=== PATIENT | male | born 1995 | race Two or more races ===

== ENCOUNTER 2024-08-17 18:05 | Emergency (ER) | payer MEDICAID, SELFPAY ==
[2024-08-17 18:17] VITALS: BP 106/64; PULSE 106; RESP 18; TEMP 39.5; O2SAT 96; BMI 26.6
--- NOTE | 2024-08-17 18:21 | XR_ITS ---
Examination: PA lateral chest 2 views TECHNIQUE: Upright PA lateral chest 2 views Exam date and time: August 17, 2024 1848 hours INDICATIONS: Coughing fever today. FINDINGS: Normal heart size The lungs are clear. The osseous structures are intact IMPRESSION: No pneumonia identified
[2024-08-17 18:39] VITALS: TEMP 39.5
[2024-08-17] MEDS: IBUPROFEN TAB 600 MG TABLET PO (18:39)
[2024-08-17] MEDS: ACETAMINOPHEN 500 MG TABLET 1000 MG PO (18:39)
--- NOTE | 2024-08-17 18:54 | EDNOTE_ITS ---
Upper Respiratory Inf. RME/HPI General Chief Complaint: Flu Like Symptoms Stated Complaint: nausea/ vomiting , fever, weakness x 2 nights Time Seen by Provider: 08/17/24 18:18 Arrival date/time: 08/17/24 18:05 RME / HPI RME / HPI Narrative: 29-year-old male presents with complaint of bodyaches. Onset 1 day ago. Patient reports associated cough and nausea/vomiting. Endorses subjective fevers as well. Denies any sick contacts at home. Denies any chest pain or shortness of breath. Denies abdominal pain. Related Data Previous Rx's ?Medication ?Instructions ?Recorded lorazepam 0.5 mg tablet 0.5 mg PO QDAY Anxiety #10 t abs 07/12/17 ibuprofen 600 mg tablet 600 mg PO TID PRN pain #30 t abs 08/17/24 oseltamivir 75 mg capsule 75 mg PO BID 5 days #10 caps 08/17/24 Allergies Allergy/AdvReac Type Severity Reaction Status Date / Time NKA* Allergy Uncoded 08/17/24 18:06 Review of Systems Review of Systems Systems Reviewed: All systems reviewed, normal except as documented ED Exam Narrative Physical exam: Constitutional: no acute distress, age appropriate, non-toxic Eyes: PERRL, conjunctivae w/o pallor, EOMI HENT: normocephalic, atraumatic. Oral mucosa moist Respiratory Effort: no stridor, effort normal, no retractions Breath sounds: Clear bilaterally; No rales, No rhonchi, No wheezing Cardiovascular: regular rhythm, S1 and S2 normal, no murmur Abdominal: soft; non-distended, non-tender Musculoskeletal: no deformities, no swelling, no LE edema Skin: warm, dry; No rash Neurology: alert, oriented X 4. Normal gait. Moves all extremities spontaneously. Psychology: cooperative, normal mood Course Quality Measures none Orders Category Date Time Status Bedside COVID-19 Antigen Test NOW Care 08/17/24 18:21 Active Bedside Influenza A&B Antigen Test NOW Care 08/17/24 18:21 Completed XR chest 2V Stat Exams 08/17/24 18:21 Completed Acetaminophen Tab [Tylenol ES Tab] Med 08/17/24 18:22 Discontinued 1,000 mg PO X1 ONE Ibuprofen Tab [Motrin Tab] Med 08/17/24 18:22 Discontinued 600 mg PO X1 ONE Vital Signs Vital signs: Vital Signs Temperature 103.1 F H 08/17/24 18:17 Pulse Rate 106 H 08/17/24 18:17 Respiratory Rate 18 08/17/24 18:17 Blood Pressure 106/64 08/17/24 18:17 Pulse Oximetry (%) 96 08/17/24 18:17 Oxygen Delivery Method Room Air 08/17/24 18:17 Upper Respiratory Infection MDM Narrative MDM Narrative:: 29-year-old male presented with fever and bodyaches. Differential diagnoses include sepsis, pneumonia, viral URI, influenza, COVID-19 Patient appears well and nontoxic. History and exam is not consistent with sepsis and his mild tachycardia resolved after antipyretics. Pneumonia felt to be unlikely as the patient's chest x-ray is clear without any infiltrate. He is COVID and flu swabs were both negative, however clinically I feel it is quite likely he does have influenza. Upon reassessment after medications, patient reports feeling much better. Counseled to rest and drink plenty of fluids. Rx sent for Tamiflu and ibuprofen. Strict return to ED precautions given. Patient data External records reviewed:: [facility] previous records Clinical information provided by:: patient Social determinants that could affect healthcare access:: none Patient has the following chronic illnesses:: None How is presenting disease/condition affected by chronic disease/condition?: no chronic disease Evaluation data The following diagnostics were reviewed and interpreted by me:: lab results and radiology exam(s) Lab and/or radiology exams considered but not ordered:: None Interpretation Summary: Examination: PA lateral chest 2 views TECHNIQUE: Upright PA lateral chest 2 views Exam date and time: August 17, 2024 1848 hours INDICATIONS: Coughing fever today. FINDINGS: Normal heart size The lungs are clear. The osseous structures are intact IMPRESSION: No pneumonia identified Medications / Prescriptions Medications or Prescriptions considered but not ordered:: N/A Medication administrations:: Medication Administration History Discontinued Medications Acetaminophen (Acetaminophen 500 Mg Tablet) 1,000 mg PO X1 ONE Stop: 08/17/24 18:23 Last Admin: 08/17/24 18:39 Dose: 1,000 mg Documented By: EO Ibuprofen (Ibuprofen Tab 600 Mg Tablet) 600 mg PO X1 ONE Stop: 08/17/24 18:23 Last Admin: 08/17/24 18:39 Dose: 600 mg Documented By: EO See above Consultations Consultation(s) initiated? (list below): No Diagnosis Upper Respiratory Differential Diagnosis: upper respiratory infection, sinusitis, viral infection, bronchitis, influenza and pharyngitis Most likely diagnosis given after review of the tests above:: Viral syndrome Admission Indicated Admission indicated?: not indicated Admission Request Was there a request for admission?: No Disposition Plan Disposition Plan: Discharge Discharge Attestation Discharge Attestation: The patient and all family members were given an opportunity to ask questions and understood the discharge instructions. Discharge instructions specifically effects, indications for sooner follow up or return to the emergency department, and the expected course of current diagnosis. Patient condition: Stable Discharge Plan Plan Patient Disposition: HOME (Self Care) Prescriptions/Referrals Prescriptions/Med Rec: New oseltamivir 75 mg capsule 75 mg PO BID 5 Days Qty: 10 0RF ibuprofen 600 mg tablet 600 mg PO TID PRN (Reason: pain) Qty: 30 0RF No Action lorazepam 0.5 MG tablet 0.5 mg PO QDAY Qty: 10 0RF Referrals: No Primary/Family,Physician [Primary Care Provider] - In 1 week Problem List Clinical Impression: Fever, Acute viral syndrome Patient/Caregiver Discharge Instructions Education Materials: ED Influenza (Adult) Additional Instructions: Rest and drink plenty of fluids. Take medications as prescribed. Return to the ED anytime for new or worsening symptoms. Print Language: Setswana Stand Alone Forms: [employer] Info., Work/School Release, Patient Portal Info Letter
[2024-08-17 21:05] VITALS: PULSE 89; TEMP 36.7
== END 2024-08-17 21:39 | disposition home or self-care (01) ==
PROVIDERS: Emergency Provider Emergency Medicine
DX: B34.9 Viral infection, unspecified (principal)
CPT/HCPCS: 71046; 87400; 87811; 99283; A9270